=== PATIENT | male | born 1990 ===

== ENCOUNTER 2025-04-27 08:29 | Outpatient (CLI) | payer OTHER, SELFPAY | END 2025-04-27 08:30 | disposition home or self-care (01) | LOC: NFLDREF 05-01 17:33 | PROVIDERS: PCP Family Medicine; Visit Provider Family Medicine | DX: Z13.1 Encounter for screening for diabetes mellitus (principal); Z13.6 Encounter for screening for cardiovascular disorders | CPT/HCPCS: 80053; 80061 ==